=== PATIENT | male | born 1940 | race Caucasian/White ===

== ENCOUNTER 2016-07-18 22:21 | Emergency (ER) | payer MEDICARE, BC ==
--- NOTE | 2016-07-18 23:06 | EDM.PDOC ---
ED HPI GENERAL MEDICAL PROBLEM - General Chief Complaint: Bite:Animal, Insect Stated Complaint: DEER TICK BITE Time Seen by Provider: 07/18/16 22:31 Source of Information: Reports: Patient, RN Notes Reviewed History Limitations: Reports: No Limitations - History of Present Illness INITIAL COMMENTS - FREE TEXT/NARRATIVE: The patient states that he was working at [employer] today when a small tic was found attached to his upper left arm this afternoon. A friend removed it. He presents with a sub-centimeters area of erythema to his upper left arm. He is concerned about Lyme disease. He has no symptoms, such as fever, headache, or nausea. - Related Data Allergies Allergy/AdvReac Type Severity Reaction Status Date / Time No Known Allergies Allergy Verified 07/18/16 22:30 Home Meds: Home Meds Aspirin [Halfprin] 162 mg PO DAILY 07/18/16 [History] Metoprolol Succinate [Toprol XL] 25 mg PO DAILY 07/18/16 [History] atorvaSTATin [Lipitor] 40 mg PO BEDTIME 07/18/16 [History] Past Medical History Cardiovascular History: Reports: High Cholesterol, Hypertension, Other (See Below) (Aortic valve problem requiring AVR) Oncologic (Cancer) History: Reports: Prostate - Past Surgical History HEENT Surgical History: Reports: Adenoidectomy (As an ), Tonsillectomy ( As an ) Cardiovascular Surgical History: Reports: 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) GI Surgical History: Reports: Appendectomy (1985) Male Surgical History: Reports: Prostatectomy (1996) Dermatological Surgical History: Reports: Other (See Below) (Pilonidal cyst excision March 1961) Social & Family History - Tobacco Use Smoking Status *Q: Never Smoker Second Hand Smoke Exposure: No - Alcohol Use Alcohol Use History: Yes Alcohol Use Frequency: Socially - Recreational Drug Use Recreational Drug Use: No - Living Situation & Occupation Living situation: Reports: , with Spouse Occupation: Retired (Works at [employer] seasonally) ED ROS GENERAL - Review of Systems Review Of Systems: See Below Constitutional: Reports: No Symptoms HEENT: Reports: No Symptoms Respiratory: Reports: No Symptoms Cardiovascular: Reports: No Symptoms Endocrine: Reports: No Symptoms GI/Abdominal: Reports: No Symptoms : Reports: No Symptoms Musculoskeletal: Reports: No Symptoms Skin: Reports: No Symptoms Neurological: Reports: No Symptoms Psychiatric: Reports: No Symptoms Hematologic/Lymphatic: Reports: No Symptoms Immunologic: Reports: No Symptoms ED EXAM, ANIMAL BITE - Physical Exam Exam: See Below Exam Limited By: No Limitations General Appearance: Alert, WD/WN, No Apparent Distress Eye Exam: Ears: Hearing Loss (Wears hearing aids) Extremities: Normal Inspection, Normal Range of Motion, Non-Tender, Normal Capillary Refill Neurological: Alert, Normal Cognition, No Motor/Sensory Deficits Psychiatric: Normal Affect Skin Exam: Normal Color, Warm/Dry, Other (Palpable area of erythema measuring approximately 0.75 cm diameter to the lateral aspect of the patient's upper left arm. Nontender to palpation.) Lymphatic: No Adenopathy Course - Vital Signs Last Recorded V/S: Last Vital Signs Temp 36.1 C 07/18/16 22:31 Pulse 60 07/18/16 22:31 Resp 16 07/18/16 22:31 BP 177/90 H 07/18/16 22:31 Pulse Ox 98 07/18/16 22:31 - Re-Assessments/Exams Free Text/Narrative Re-Assessment/Exam: 07/18/16 23:05 The patient appears to have been bitten by a small tic this afternoon. He is concerned about Lyme disease, however, Lyme disease is not endemic in [place]. The few cases that have been reported to the CDC since 2011 appear to have been [place] residents infected elsewhere. Current guidelines recommend empiric treatment if erythema migrans (EM) develops in the area of the tick bite, typically within one month. If no EM develops, but the patient develops symptoms of early disseminated Lyme disease, serology is indicated, which would then confirm the diagnosis. I will refer the patient to the clinic for followup, if necessary. Departure - Departure Time of Disposition: 23:08 Disposition: Home, Self-Care 01 Condition: good Clinical Impression: Tick bite of left upper arm - Discharge Information Referrals: PCP,Not In Area [Primary Care Provider] - Jenny Fontana PA-C [Physician [employer] Lead] - Forms: ED Department Discharge Additional Instructions: You were seen in the emergency room after discovering a tick bite to your upper left arm this afternoon. Lyme disease is not endemic in [place], so the likelihood of acquiring Lyme disease from a tick bite is extremely small. If you develop a rash to your left arm that looks like a target, typically within a month, please followup with Jenny Fontana in the clinic for evaluation and treatment. If any other problems, please do not hesitate to return to the ER.
[2016-07-18 23:20] VITALS: BP 171/95
== END 2016-07-18 23:19 | disposition home or self-care (01) ==
LOC: JD.ED 22:21
DX: S40.862A Insect bite (nonvenomous) of left upper arm, initial encounter (principal); I10 Essential (primary) hypertension; E78.00 Pure hypercholesterolemia, unspecified; Z79.82 Long term (current) use of aspirin; Z79.899 Other long term (current) drug therapy; Z90.49 Acquired absence of other specified parts of digestive tract; Z98.890 Other specified postprocedural states; W57.XXXA Bitten or stung by nonvenomous insect and other nonvenomous arthropods, initial encounter
CPT/HCPCS: 99281; 99282